=== PATIENT | male | born 1960 | race Caucasian/White ===

== ENCOUNTER 2017-07-24 09:29 | Emergency (ER) | payer MEDICAID ==
[~2017-07-24] VITALS: Ht 180.3 cm; Wt 77.0 kg
[2017-07-24 10:01] VITALS: BP 186/120
[2017-07-24] MEDS ORDERED: CLON0.1T PO (10:06)
[2017-07-24] MEDS ORDERED: HYDR12.529 PO (10:06)
[2017-07-24] MEDS ORDERED: AMLO2.5T45 PO (10:06)
== END 2017-07-24 16:37 | disposition left against medical advice (07) ==
LOC: ER 10:02
DX: Z53.21 Procedure and treatment not carried out due to patient leaving prior to being seen by health care provider (principal)